=== PATIENT | female | born 2000 | race Caucasian/White ===

== ENCOUNTER 2024-10-23 08:49 | Emergency (ER) | payer OTHER, SELFPAY ==
--- NOTE | 2024-10-23 08:52 | ED.NAVMDI ---
HPI - Nausea/Vomiting/Diarrhea General Chief complaint: Upper Respiratory Infection Stated complaint: nausea,vomiting,headache Time Seen by Provider: 10/23/24 08:52 Source: patient Mode of arrival: ambulatory Limitations: no limitations History of Present Illness HPI Narrative: Marysol is a 24-year-old female patient presenting to the clinic today with complaints of nausea, vomiting, diarrhea, and headache. She reports headache started on Saturday however that resolved on Saturday. States she started having nausea, vomiting, and diarrhea on Saturday. No known fevers, chills, or body aches. Denies any URI symptoms or sore throat. Has taken multiple test and they were all negative. History of PCOS and she has a irregular menses. Denies any abdominal pain or blood in her stool or emesis. Does smoke marijuana but stop smoking on Saturday to see if this would alleviate her symptoms. States she is unable to keep food or water down at this time pain. Denies any nausea or headache currently. Denies any urinary symptoms. States she recently was treated for UTI in September. Related Data Home Medications ?Medication ?Instructions ?Recorded ?Confirmed ?Last Taken ?Type No Home Medications 10/23/24 10/23/24 Unknown History Allergies Allergy/AdvReac Type Severity Reaction Status Date / Time No Known Allergies Allergy Verified 10/23/24 09:05 Review of Systems Review of Systems: Pertinent positives per HPI. Patient denies any fever, chills, rash, headache, visual changes, dizziness, cough, runny nose, sore throat, shortness of breath, chest pain, palpitations, constipation, abdominal pain, or any urinary issues. PMFSH Comments At the time of my signature, I reviewed and agree with the nursing past medical, surgical, social, and family history. There is no relevant family history pertinent to the patient complaint. Exam Narrative: General: Well-developed, well nourished, in no apparent distress Head: Normocephalic, atraumatic Eyes: Pupils equally round and reactive to light bilaterally, EOM intact, sclera and conjunctive clear, no discharge, lids normal Ears: TMs intact and clear, ear canals clear, no drainage, grossly hearing normal. Nose: Nares patent, no discharge, no inflammation, no sinus tenderness. Mouth: Oropharynx without lesions or masses, good dentition, MMM. Neck: Supple, trachea midline, no enlargement of anterior or posterior cervical nodes, no thyroid masses or goiter palpable. Cardio: Regular rate and rhythm, s1 and s2 normal, no murmur appreciated. Resp: Clear to auscultation bilaterally anteriorly and posteriorly, no rhonchi, rales, wheezing or rubs Abdomen: Soft, pliable, bowel sounds present in all quadrants, non-tender to palpation, no organomegly, no CVAT tenderness. Course Course Emergency Course: Portions of this record may have been created with voice recognition software. Level of Care: Express Care Visit Vital Signs Vital signs: Vital Signs Temperature 36.2 C L 10/23/24 09:04 Pulse Rate 66 10/23/24 09:04 Respiratory Rate 18 10/23/24 09:04 Blood Pressure 104/60 10/23/24 09:04 Pulse Oximetry 100 10/23/24 09:04 Oxygen Delivery Room Air 10/23/24 09:04 Temperature 36.2 C L 10/23/24 09:04 Pulse Rate 66 10/23/24 09:04 Respiratory Rate 18 10/23/24 09:04 Blood Pressure 104/60 10/23/24 09:04 Pulse Oximetry 100 10/23/24 09:04 Oxygen Delivery Room Air 10/23/24 09:04 Vital signs reviewed Transfer Transfered to: [facility] Transportation: Other (Private car) Transfer rationale: Gastroenteritis/dehydration Accepting physician: Cristi Transfer comments: Private car MDM - Nausea/Vomiting/Diarrhea MDM Narrative Medical decision making narrative: At the time of visit patient is resting comfortably on the exam table. Patient appears to be nontoxic. Labs: Urinalysis positive for 2+ blood, 1+ protein, 4+ ketones, bili, and high specific gravity. Bedside test is negative. Plan: Shared decision making was performed: Offer to trial patient on antinausea medications and send her home and encourage increasing fluids or sending patient to the emergency room as she does appear to be dehydrated-mucous membranes are dry and she has 4+ ketones. Vital signs are stable at this time. Patient would like to go to the emergency room for IV fluids and further evaluation. Patient agrees to go to [facility] emergency room. Report was called to [place] physician's ambulance assistant for continuity of care and she accepts patient for transfer. Patient to be transferred via private car. Differential Diagnosis Differential diagnosis: Likely traveler's diarrhea, food poisoning, gastroenteritis, clostridium difficile infection, drug-induced nausea and vomiting, dehydration and other (, UTI, viral syndrome, migraine, cyclic vomiting due to THC use, small-bowel obstruction, GERD, JOSE FRANCISCO) Lab Data Labs: Lab Results 10/23/24 10/23/24 Range/Units 09:19 09:20 POC Urine Color Dark POC Urine Clarity Clear POC Urine pH 5.5 POC Ur Specif [place] 1.030 POC Urine Protein 1+ (Negative) POC Ur Glucose (UA) Negative (Negative) POC Urine Ketones 4+ (Negative) POC Urine Blood 2+ (Negative) POC Urine Nitrite Negative (Negative) POC Urine Bilirubin 1+ (Negative) POC Urine Urobilinogen 0.2 POC U Leukocyte Esteras Negative (Negative) POC Urine HCG, Qual Negative (Negative) Discharge Plan Discharge Clinical Impression: Gastroenteritis, Dehydration Patient Disposition: Acute Care Hospital Condition: Stable Patient Language: French Prescriptions: No Action No Home Medications Follow-up/Referrals: UNKNOWN,DOCTOR [Primary Care Provider] - Time of Disposition: 09:29 Quality NIHSS Nursing Documentation ED NIHSS nursing documentation: reviewed/agree
[2024-10-23 09:04] VITALS: BP 104/60; PULSE 66; RESP 18; TEMP 36.2; O2SAT 100
[2024-10-23 09:20] LABS: BEDSIDEPREGUCG Negative (Negative)
[2024-10-23 09:20] LABS: EDUAAPPEAR Clear; EDUABILI 1+ (Negative); EDUABLOOD 2+ (Negative); EDUACOLOR1 Dark; EDUAGLUCOSE Negative (Negative); EDUAKETONE 4+ (Negative); EDUALEUKO Negative (Negative); EDUANITRATE Negative (Negative); EDUAPH 5.5; EDUAPROTEIN 1+ (Negative); EDUAUROBILI 0.2
== END 2024-10-23 09:32 | disposition short-term general hospital (02) ==
PROVIDERS: Emergency Provider Nurse Practitioner Family
DX: K52.9 Noninfective gastroenteritis and colitis, unspecified (principal); E86.0 Dehydration; E28.2 Polycystic ovarian syndrome
CPT/HCPCS: 81003; 81025; 87086; 99213; G0463

== ENCOUNTER 2024-10-23 09:46 | Emergency (ER) | payer OTHER, SELFPAY ==
--- NOTE | ~2024-10-23 | CT_ITS ---
EXAMINATION: CT brain wo con DATE: 10/23/2024 10:34 INDICATION: Headache and vomiting TECHNIQUE: Computed tomography (CT) of the head was performed without intravenous contrast. Sagittal and coronal reconstructions were performed. The mA was adjusted according to patient size. Iterative reconstruction technique was employed. The dose-length product was 605.33 mGy-cm. COMPARISON: None FINDINGS: No acute intracranial hemorrhage, acute infarction or abnormal extra axial fluid collection. Ventricl es are normal and symmetric. No mass/mass effect. Bubbly mucus in the dependent right maxillary sinus consistent with acute sinusitis. The orbits and mastoid air cells are normal. IMPRESSION: 1. Normal brain. No acute intracranial process. 2. Bubbly mucus in the right maxillary sinus. Correlate clinically for acute sinusitis. Reviewed, dictated and finalized at location A. IMPRESSION: 1. Normal brain. No acute intracranial process. 2. Bubbly mucus in the right maxillary sinus. Correlate clinically for acute si nusitis.
[2024-10-23 10:01] VITALS: BP 116/71; PULSE 81; RESP 18; TEMP 36.8; O2SAT 100
--- NOTE | 2024-10-23 10:14 | PC.NURSE ---
Pt states unable to give urine sample at this time. States will use call light to alert staff when able
[2024-10-23 10:19] LABS: Basophils Percent Auto 0.2 % (0.2-1.2); Hematocrit 41.3 % (37.0-47.0); Hemoglobin 14.4 g/dL (12.0-15.0); Immature Granulocyte Absolute 0.05 K/mm3 (0.00-0.031); Immature Granulocyte Percent A 0.4 % (0-0.5); Lymphocytes Absolute Auto 0.69 K/mm3 (0.9-3.2); Lymphocytes Percent Auto 5.4 % (18.3-44.2); Mean Corpuscular HGB Conc 34.9 g/dl (32-36); Mean Corpuscular Hemoglobin 31.7 pg (26-34); Monocytes Absolute Auto 0.3 K/mm3 (0.1-0.6); Monocytes Percent Auto 2.5 % (2.6-8.5); Neutrophils Absolute Auto 11.6 K/mm3 (1.3-6.7); Neutrophils Percent Auto 91.5 % (45.5-73.1); Platelet Count Result 298 k/mm3 (150-375); Red Blood Count 4.54 M/mm3 (4.2-5.4); Red Cell Distribution Width 11.9 % (11.5-14.5); White Blood Count 12.7 K/mm3 (4.5-10.0)
--- NOTE | 2024-10-23 10:24 | ED_ITS ---
HPI - Nausea/Vomiting/Diarrhea General Chief complaint: Nausea/Vomiting/Diarrhea Stated complaint: not able to eat, nausea Time Seen by Provider: 10/23/24 09:56 Source: patient Mode of arrival: ambulatory Limitations: no limitations History of Present Illness HPI Narrative: This is a 24-year-old female that presents to the emergency department for nausea and vomiting. Ongoing over the last couple of days. Does report associated headache. Reports history of cluster headaches. Also does report history of GI issues that are brought on by stress. Reports she stopped smoking weed on Saturday. She was seen at urgent care and sent to the ER for further evaluation and IV fluid hydration. Denies fevers, abdominal pain, numbness, weakness. Related Data Allergies Allergy/AdvReac Type Severity Reaction Status Date / Time No Known Allergies Allergy Verified 10/23/24 09:05 Review of Systems 2 Review of Systems: All systems reviewed & are unremarkable except as noted in HPI and below PMFSH Social History Social History (Updated 10/23/24 @ 10:24 by [place] Mayorga PA-C) Smoking status: Current every day smoker Tobacco type: e-cigarettes/vaping Substance use: current Exam 2 Narrative: GENERAL: Well-appearing, well-nourished, and in no acute distress. HEAD: Normocephalic, atraumatic. EYES: PERRLA and EOMI. ENT: Nares clear, no rhinorrhea or epistaxis. Mucous membranes moist. Oropharynx without tonsillar hypertrophy exudate or other lesions. NECK: Supple. No adenopathy or masses. CHEST: Clear to auscultation. No respiratory distress. No wheezes rales or rhonchi HEART: Regular rate and rhythm. No murmur heard. Normal peripheral pulses. ABDOMEN: Soft, nontender, nondistended, normal active bowel sounds. EXTREMITIES: Normal range of motion. No edema. SKIN: Warm, dry, no rash. NEURO: No focal deficits. Alert and oriented x3. Cranial nerves 2-12 grossly intact PSYCH: Normal mood and affect Course Course Emergency Course: Patient updated on her workup. Reports feeling well and ready for discharge, tolerating p.o. challenge Vital Signs Vital signs: Vital Signs Temperature 98.3 F 10/23/24 10:01 Pulse Rate 81 10/23/24 10:01 Respiratory Rate 18 10/23/24 10:01 Blood Pressure 116/71 10/23/24 10:01 Pulse Oximetry 100 10/23/24 10:01 Oxygen Delivery Room Air 10/23/24 10:01 Temperature 98.3 F 10/23/24 10:01 Pulse Rate 65 10/23/24 12:51 Respiratory Rate 16 10/23/24 12:51 Blood Pressure 102/52 L 10/23/24 12:51 Pulse Oximetry 100 10/23/24 12:51 Oxygen Delivery Room Air 10/23/24 10:01 MDM - Nausea/Vomiting/Diarrhea MDM Narrative Medical decision making narrative: Patient presents the emergency department for nausea and vomiting. Ongoing over the last couple of days. Denies any associated abdominal discomfort. Is endorsing some headaches. History of cluster headaches. She also reports history of similar episodes of decreased appetite, nausea vomiting which last for several days. She does endorse smoking marijuana. She is afebrile and nontoxic appearing. Her vitals are stable. CBC with mild leukocytosis to 12.7, likely due to vomiting. Metabolic panel with some evidence of dehydration. Urine without evidence of infection. test negative. CT brain without acute findings. Patient hydrated with 2 L of IV fluids. Patient updated on her workup. Reports feeling well and ready for discharge, tolerating p.o. challenge. Instructed to have close follow-up with her PCP. Will be given information for follow-up with gastroenterology. She was given warnings to return to the ER Differential Diagnosis Differential diagnosis: Likely food poisoning, gastroenteritis, drug-induced nausea and vomiting and dehydration Lab Data Attestation: I reviewed the patient's lab results. 10/23/24 10:10 10/23/24 13:22 Labs: Lab Results 10/23/24 10/23/24 10/23/24 Range/Units 10:10 10:52 10:55 WBC 12.7 H (4.5-10.0) K/mm3 RBC 4.54 (4.2-5.4) M/mm3 Hgb 14.4 (12.0-15.0) g/dL Hct 41.3 (37.0-47.0) % MCV 91.0 (80-100) fl MCH 31.7 (26-34) pg MCHC 34.9 (32-36) g/dl RDW 11.9 (11.5-14.5) % Plt Count 298 (150-375) k/mm3 MPV 9.0 (7.4-10.4) fl Immature Gran % (Auto) 0.4 (0-0.5) % Neut % (Auto) 91.5 H (45.5-73.1) % Lymph % (Auto) 5.4 L (18.3-44.2) % [place] % (Auto) 2.5 L (2.6-8.5) % Eos % (Auto) 0.0 (0-4.4) % Baso % (Auto) 0.2 (0.2-1.2) % Lymph # (Auto) 0.69 L (0.9-3.2) K/mm3 [place] # (Auto) 0.3 (0.1-0.6) K/mm3 Eos # (Auto) 0.0 (0-0.3) K/mm3 Baso # (Auto) 0.0 (0.0-0.1) K/mm3 Abs Immat Gran (auto) 0.05 H (0.00-0.031) K/mm3 Absolute Neuts (auto) 11.6 H (1.3-6.7) K/mm3 Absolute Nucleated RBC 0.000 (0.0-0.012) K/mm3 Band Neutrophils % Not Reportable Nucleated RBC % 0.0 (0.0-0.2) % Platelet Estimate Adequate (Adequate) Schistocytes None seen Sodium 137 (137-145) mmol/L Potassium 4.0 (3.4-5.0) mmol/L Chloride 102 (98-107) mmol/L Carbon Dioxide 20 L (22-30) mmol/L Anion Gap 15 H (4-12) mmol/L BUN 15 (7-17) mg/dL Creatinine 0.74 (0.7-1.0) mg/dL Estim Creat Clear Calc 92 ml/min Estimated GFR > 60 (59 - ) Glucose 81 (65-110) mg/dL Calcium 9.2 (8.4-10.2) mg/dL Total Bilirubin 1.9 H (0.2-1.3) mg/dL AST 32 (14-36) U/L ALT 20 (6-35) U/L Alkaline Phosphatase 68 (38-126) U/L Total Protein 8.6 H (6.3-8.2) g/dL Albumin 4.9 (3.5-5.1) g/dL Lipase 60 (23-300) U/L Urine Color Yellow (Yellow) Urine Appearance Clear (Clear) Urine pH 5.0 (5.0-9.0) Ur Specific [place] 1.032 (1.001-1.035) Urine Protein 1+ H (Negative) mg/dL Urine Glucose (UA) Negative (Negative) mg/dL Urine Ketones 4+ H (Negative) mg/dL Ur Blood (Man) 1+ H (Negative) Urine Nitrate Negative (Negative) Urine Bilirubin Negative (Negative) Urine Urobilinogen 1.0 (<2.0) mg/dL Leukocyte Esterase Rfl Negative (Negative) PRAMOD/UL Urine RBC 3-5 H (0-2) /hpf Urine WBC 0-5 (0-3) /hpf Ur Squamous Epith Cells Occasional (Few) /hpf Urine Bacteria None seen /hpf Urine Casts 3-5 POC Urine HCG, Qual Negative (Negative) 10/23/24 Range/Units 13:22 WBC (4.5-10.0) K/mm3 RBC (4.2-5.4) M/mm3 Hgb (12.0-15.0) g/dL Hct (37.0-47.0) % MCV (80-100) fl MCH (26-34) pg MCHC (32-36) g/dl RDW (11.5-14.5) % Plt Count (150-375) k/mm3 MPV (7.4-10.4) fl Immature Gran % (Auto) (0-0.5) % Neut % (Auto) (45.5-73.1) % Lymph % (Auto) (18.3-44.2) % [place] % (Auto) (2.6-8.5) % Eos % (Auto) (0-4.4) % Baso % (Auto) (0.2-1.2) % Lymph # (Auto) (0.9-3.2) K/mm3 [place] # (Auto) (0.1-0.6) K/mm3 Eos # (Auto) (0-0.3) K/mm3 Baso # (Auto) (0.0-0.1) K/mm3 Abs Immat Gran (auto) (0.00-0.031) K/mm3 Absolute Neuts (auto) (1.3-6.7) K/mm3 Absolute Nucleated RBC (0.0-0.012) K/mm3 Band Neutrophils % Nucleated RBC % (0.0-0.2) % Platelet Estimate (Adequate) Schistocytes Sodium 139 (137-145) mmol/L Potassium 4.0 (3.4-5.0) mmol/L Chloride 105 (98-107) mmol/L Carbon Dioxide 19 L (22-30) mmol/L Anion Gap 15 H (4-12) mmol/L BUN 13 (7-17) mg/dL Creatinine 0.69 L (0.7-1.0) mg/dL Estim Creat Clear Calc 98 ml/min Estimated GFR > 60 (59 - ) Glucose 74 (65-110) mg/dL Calcium 8.8 (8.4-10.2) mg/dL Total Bilirubin (0.2-1.3) mg/dL AST (14-36) U/L ALT (6-35) U/L Alkaline Phosphatase (38-126) U/L Total Protein (6.3-8.2) g/dL Albumin (3.5-5.1) g/dL Lipase (23-300) U/L Urine Color (Yellow) Urine Appearance (Clear) Urine pH (5.0-9.0) Ur Specific [place] (1.001-1.035) Urine Protein (Negative) mg/dL Urine Glucose (UA) (Negative) mg/dL Urine Ketones (Negative) mg/dL Ur Blood (Man) (Negative) Urine Nitrate (Negative) Urine Bilirubin (Negative) Urine Urobilinogen (<2.0) mg/dL Leukocyte Esterase Rfl (Negative) PRAMOD/UL Urine RBC (0-2) /hpf Urine WBC (0-3) /hpf Ur Squamous Epith Cells (Few) /hpf Urine Bacteria /hpf Urine Casts POC Urine HCG, Qual (Negative) Critical Care Time Critical Care Time Critical Care Time: No Discharge Plan Discharge Clinical Impression: Dehydration Patient Disposition: Home Condition: Improved Instructions: Dehydration (ED) Additional Instructions: Return to the emergency department if you experience fever, chest pain, shortness of breath, abdominal pain with nausea and vomiting, weakness, numbness, or any other symptoms that are concerning to you. Remain well hydrated. Ondansetron as needed for nausea. Pepcid as needed Follow up with your primary care doctor and gastroenterology Patient Language: Mauritanian Prescriptions: New ondansetron 4 mg tablet,disintegrating 4 mg PO Q8H PRN (Reason: nausea and vomiting) Qty: 14 0RF famotidine [Pepcid AC] 20 mg tablet 20 mg PO DAILY 7 Days Qty: 7 0RF Follow-up/Referrals: PHYSICIAN NOT ON STAFF,NONSTAFF [Primary Care Provider] - Dany Palacios MD [Physician] -
[2024-10-23 10:28] LABS: Alanine Aminotransferase 20 U/L (6-35); Albumin Level 4.9 g/dL (3.5-5.1); Alkaline Phosphatase 68 U/L (38-126); Anion Gap 15 mmol/L (4-12); Aspartate Amino Transferase 32 U/L (14-36); Bilirubin,Total 1.9 mg/dL (0.2-1.3); Blood Urea Nitrogen 15 mg/dL (7-17); Calcium 9.2 mg/dL (8.4-10.2); Carbon Dioxide 20 mmol/L (22-30); Chloride 102 mmol/L (98-107); Estimated CRCL calculation 92 ml/min; Estimated Glomerular Filt Rate > 60; Glucose 81 mg/dL (65-110); Lipase 60 U/L (23-300); Sodium 137 mmol/L (137-145); Total Protein 8.6 g/dL (6.3-8.2)
--- NOTE | 2024-10-23 10:44 | PC.NURSE ---
patient ambulated to bathroom with a urine cup to provide sample.
[2024-10-23] MEDS: SODIUM CHLORIDE 0.9% IV 1,000 ML 999 ML IV CONT (10:47)
[2024-10-23] MEDS: diphenhydrAMINE HCl INJ 50 MG/ML VIAL 25 MG IV PUSH (10:48)
[2024-10-23] MEDS: FAMOTIDINE 20 MG/2 ML VIAL IV PUSH (10:49)
[2024-10-23 10:50] LABS: Platelet Estimate Adequate (Adequate); Schistocytes None Seen
[2024-10-23] MEDS: METOCLOPRAMIDE HCL INJ 10 MG/2 ML VIAL IV PUSH (10:50)
[2024-10-23 10:55] VITALS: BP 102/62; PULSE 79; RESP 14; O2SAT 100
[2024-10-23 10:58] LABS: BEDSIDEPREGUCG Negative (Negative)
[2024-10-23 11:18] LABS: Add Urine Microscopic? YES; Appearance Urine Clear (Clear); Bacteria Urine None Seen /hpf; Bilirubin Urine Negative (Negative); Blood Urine 1+ (Negative); Color Urine Yellow (Yellow); Glucose Urine UA Negative (Negative); Ketones Urine 4+ mg/dL (Negative); Leukocyte Esterase Ur Negative LEU/UL (Negative); Nitrate Urine Negative (Negative); Protein Urine 1+ mg/dL (Negative); Specific Grav Ur 1.032 (1.001-1.035); Squamous Epithelial Cell Urine Occasional /hpf (Few); WBC Urine 0-5 /hpf (0-3)
[2024-10-23] MEDS: LACTATED RINGERS 1,000 ML 999 ML IV CONT (11:43)
[2024-10-23 12:51] VITALS: BP 102/52; PULSE 65; RESP 16; O2SAT 100
[2024-10-23 13:50] LABS: Anion Gap 15 mmol/L (4-12); Blood Urea Nitrogen 13 mg/dL (7-17); Calcium 8.8 mg/dL (8.4-10.2); Carbon Dioxide 19 mmol/L (22-30); Chloride 105 mmol/L (98-107); Estimated CRCL calculation 98 ml/min; Estimated Glomerular Filt Rate > 60; Glucose 74 mg/dL (65-110); Sodium 139 mmol/L (137-145)
[2024-10-23 14:16] VITALS: BP 105/60; PULSE 87; RESP 18; O2SAT 98
== END 2024-10-23 14:17 | disposition home or self-care (01) ==
PROVIDERS: Emergency Provider Physician Assistant
DX: E86.0 Dehydration (principal); F17.290 Nicotine dependence, other tobacco product, uncomplicated
CPT/HCPCS: 36415; 70450; 80048; 80053; 81001; 81003; 81025; 83690; 85025; 87086; 96361; 96374; 96375; 99284; J1200; J2765; J7030; J7120

== ENCOUNTER 2025-04-24 16:44 | Emergency (ER) | payer OTHER, SELFPAY ==
--- NOTE | 2025-04-24 16:48 | ED_ITS ---
HPI - URI/Sore Throat General Chief Complaint: Upper Respiratory Infection Stated Complaint: strep Time Seen by Provider: 04/24/25 17:05 Source: patient, RN notes reviewed and old records reviewed Mode of arrival: ambulatory Limitations: no limitations History of Present Illness HPI Narrative: 24-year-old female presents to the [facility] with a sore itchy throat. Patient states that she was not feeling well several days ago, is better today. Has an exposure to strep no treatment prior to arrival Treatments prior to arrival: none Related Data Home Medications ?Medication ?Instructions ?Recorded ?Confirmed ?Last Taken ?Type No Home Medications 04/24/25 04/24/25 U nknown History Allergies Allergy/AdvReac Type Severity Reaction Status Date / Time No Known Allergies Allergy Verified 04/24/25 17:14 Review of Systems Review of Systems: All systems reviewed & are unremarkable except as noted in HPI and below Constitutional: Constitutional: Reports no additional constitutional complaints ENT: Reports as per HPI and Reports sore throat Cardiovascular: Cardiovascular: Reports no additional cardiovascular complaints, Denies chest pain and Denies dyspnea Respiratory: Respiratory: Reports no additional respiratory complaints, Denies chest congestion, Denies cough and Denies dyspnea Musculoskeletal: Musculoskeletal: Reports no additional musculoskeletal c omplaints Integumentary/Breasts: Skin/Breast: Reports system reviewed and no additional complaints, except as docu PMFSH Social History Social History Smoking status: Current every day smoker Tobacco type: e-cigarettes/vaping Substance use: current Comments At the time of my signature, I reviewed and agree with the nursing past medical, surgical, social, and family history. There is no relevant family history pertinent to the patient complaint. Exam Const: General: cooperative, healthy appearing, comfortable, no acute distress, well developed, alert and well nourished Nutritional Appearance: well nourished Orientation/consciousness: patient oriented x3 Limitations: no limitations HENMT: Head: normal to inspection Ears: hearing grossly normal bilaterally, external ears normal, TM's normal bilaterally, EAC's normal, mastoids normal and no periauricular adenopathy Face/Nose/Sinus: Normal external nose present, Normal nares present, Normal nasal mucous membranes and turbinates present and No nasal discharge present Mouth: Yes Normal oral and palatal mucosa present, Yes lip normal, Yes tongue normal and Yes moist mucous membranes Throat: posterior oropharynx normal, uvula midline and no uvular edema Eyes: General: appearance normal, both eyes and all related structures Alignment and Position: alignment normal Neck: Neck: normal visual inspection, full ROM, no lymphadenopathy and no meningeal signs Chest: Chest palpation & inspection: normal inspection of the chest Resp: Effort & Inspection: normal respiratory effort and able to speak in complete sentences Auscultation: clear to auscultation bilaterally, no crackles, no rales, no rhonchi and no wheezes Cardio: Rate: regular rate Skin: General skin exam: normal color and no rashes or lesions noted Neuro: General: patient oriented x3, gait normal, moves all extremities and no meningeal signs Cognition (Neuro): normal cognition Speech: normal speech Gait exam (Neuro): Normal gait present Extrem: General: normal to inspection, full ROM, capillary refill normal and normal gait Psych: Appearance: grossly normal and well kempt Mental Status: mental status grossly normal Speech and movement: Normal speech and movement present and Clear speech present Affect: normal affect Attitude: cooperative Course Course Level of Care: Express Care Visit Vital Signs Vital signs: Vital Signs Temperature 97.5 F L 04/24/25 17:02 Pulse Rate 70 04/24/25 17:02 Respiratory Rate 16 04/24/25 17:02 Blood Pressure 106/54 L 04/24/25 17:02 Pulse Oximetry 100 04/24/25 17:02 Oxygen Delivery Room Air 04/24/25 17:02 Temperature 97.5 F L 04/24/25 17:02 Pulse Rate 70 04/24/25 17:02 Respiratory Rate 16 04/24/25 17:02 Blood Pressure 106/54 L 04/24/25 17:02 Pulse Oximetry 100 04/24/25 17:02 Oxygen Delivery Room Air 04/24/25 17:02 reviewed MDM MDM Narrative Medical decision making narrative: patient sitting in exam room. Patient is nontoxic, vitals are stable. Patient presents with exposure to strep. Strep test here negative, will culture. Patient with no acute findings on exam. Patient is appropriate for outpatient treatment with close follow-up Discharge instructions reviewed with patient, as well as provided in writing per nursing staff. The instructions also include specific and strict return/GO TO THE ER as well as f/u information. All questions have been answered, and the patient deny any further questions with discharge and discharge plan. Some parts of this dictation were generated by voice recognition software and may contain typographical and/or grammatical inaccuracies. Differential Diagnosis Differential Diagnosis: Differential diagnostic considerations for upper respiratory infection include upper respiratory infection, croup, otitis media, sinusitis, viral infection, bronchitis, influenza, pharyngitis, strep, uvulitis.? Medical Records I have reviewed the following patient records and this information was taken into consideration when formulating the assessment and plan.: previous ER visits Lab Data Labs: Lab Results 04/24/25 Range/Units 17:12 POC Grp A Strep Screen Negative (Negative) reviewed Discharge Plan Discharge Clinical Impression: Pharyngitis Patient Disposition: Home Condition: Stable Instructions: Antibiotic Form, Pharyngitis (ED) Additional Instructions: Your rapid strep swab was negative today at [facility]. A throat culture will be sent to the laboratory for further testing. If the test is positive, you will receive a phone call within 48 hours and an appropriate antibiotic will be initiated at that time. Your symptoms are likely due to a viral illness, which is not treated with antibiotics. Typically viral infections last 7-10 days, can linger for couple of weeks. It is very important to treat your symptoms. Drink plenty of water, Gatorade, Pedialyte, ice pops or Jell-O. -Alternate Tylenol and Motrin per package directions for fever or pain. You can alternate every 4 hours -Antihistamine medication such as Zyrtec/Claritin/Beth during the day can help improve symptoms. -doing daily nasal irrigations can help relieve pressure your sinuses. Things like a Neti pot -Use Flonase twice a day for 5 days then daily to help reduce the inflammation and dry up your sinuses. -You can also use Mucinex. Be sure to drink plenty of water with this medication at least 8 ounces with every dose and it is important to drink 8 to 10 glasses of water per day. Water is a natural decongestant -Eat and drink things that are easy to swallow, like tea or soup, or popsicles. -Oral rinses such as: Salt water gargles and/or may use topical anesthetic (eg. Chloraseptic spray) or lozenges to relieve dryness or throat pain). -Frequent hand washing or hand hydraulic riveter is one of the best ways to prevent spread of infection. -Using a vaporizer or humidifier at night will also help thin secretions and help with coughing up phlegm. -Follow up with primary care provider in 7-10 days if condition is not improving - For new or worsening symptoms go directly to the nearest ER Patient Language: Nauruan Prescriptions: No Action No Home Medications Follow-up/Referrals: PHYSICIAN NOT ON STAFF,NONSTAFF [Primary Care Provider] Time of Disposition: 17:20
--- OUTSIDE RECORDS SUMMARY | 2025-04-24 16:48 | XMS_ITS | Encounter Summary ---
Author Organization [facility] Address [address] [place] [address] Care Team Providers Care Sql Server Architect Name Role Phone Jose A Hernandez MD Primary Care Provider [phone] Encounter Details Date Type Department Care Team (Late st Contact Info) Description 05/04/2007 Emergency [facility] [place], Authorized P NO ADDRESS ON FILE Elver Paiz, ADAMARIS [address] [address] Social History Tobacco Use Types Packs/Day Years Used Date Smoking Tobacco: Never Assessed Comments Unknown Sex and Gender Information Value Date Recorded Sex Assigned at Female 10/31/2023 8:48 AM CDT Legal Sex Female 5:21 AM MERCHANDISE COLLECTOR Gender Identity Female 10/31/2023 8:48 AM CDT Sexual Orientation Not on file documented as of this encounter Plan of Treatment Upcoming Encounters Date Type Department Care Team (Late st Contact Info) Description 03/11/2026 9:00 AM MERCHANDISE COLLECTOR Office Visit [facility] [address] [place] [address] Wendy Cee DNP [address] [place] [address] documented as of this encounter Visit Diagnoses Not on filedocumented in this encounter Care Teams Sql Server Architect Relationship Specialty Start Date End Date Jose A Hernandez MD PCP - General Internal Medicine 03/22/22 documented as of this encounter
--- OUTSIDE RECORDS SUMMARY | 2025-04-24 16:48 | XMS_ITS | Encounter Summary ---
Author Organization [facility] Address [address] [place]: [place] [address] Care Team Providers Care Oxygen Therapist Name Role Phone Jose A Hernandez MD Primary Care Provider [phone]- [phone] Encounter Details Date Type Department Care Team (Late st Contact Info) Description 1999 Inpatient Historical Holly Joe MD [address] [place] [address] Single liveborn, born in hospital, delivered without mention of delivery (Primary Dx) Social History Tobacco Use Types Packs/Day Years Used Date Smoking Tobacco: Never Assessed Comments Unknown Sex and Gender Information Value Date Recorded Sex Assigned at Female 10/31/2023 8:48 AM CDT Legal Sex Female 5:21 AM AMBULATORY NURSE Gender Identity Female 10/31/2023 8:48 AM CDT Sexual Orientation Not on file documented as of this encounter Plan of Treatment Upcoming Encounters Date Type Department Care Team (Late st Contact Info) Description 03/11/2026 9:00 AM AMBULATORY NURSE Office Visit [facility] [address] [facility] [address] [place] [address] Wendy Cee, MARIANNA [address] [facility] [address] [place] [id number] documented as of this encounter Visit Diagnoses Diagnosis Single liveborn, born in hospital, delivered without mention of delivery- Primary documented in this encounter Care Teams Oxygen Therapist Relationship Specialty Start Date End Date Jose A Hernandez MD PCP - General Internal Medicine 03/22/22 documented as of this encounter
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
--- OUTSIDE RECORDS SUMMARY | 2025-04-24 16:48 | XMS_ITS | Encounter Summary ---
Author Organization [facility] Address [address] [place] [address] Care Team Providers Care Packing Room Worker Name Role Phone Jose A Hernandez MD Primary Care Provider [phone]- [phone] Encounter Details Date Type Department Care Team (Latest Contact Info) Description 05/03/2000 Outpatient Historical [facility] Waldo Jett MD [address] [facility] [address] [address] Stenosis of nasolacrimal duct, acquired (Primary Dx) Social History Tobacco Use Types Packs/Day Years Used Date Smoking Tobacco: Never Assessed Comments Unknown Sex and Gender Information Value Date Recorded Sex Assigned at Female 10/31/2023 8:48 AM CDT Legal Sex Female 5:21 AM ETCHER ELECTROLYTIC Gender Identity Female 10/31/2023 8:48 AM CDT Sexual Orientation Not on file documented as of this encounter Plan of Treatment Upcoming Encounters Date Type Department Care Team (Late st Contact Info) Description 03/11/2026 9:00 AM ETCHER ELECTROLYTIC Office Visit [facility] [address] [place] [address] [place] [address] [place] [id number] Wendy Cee, DNP [address] [facility] [place] [address] [place] [address] documented as of this encounter Visit Diagnoses Diagnosis Stenosis of nasolacrimal duct, acquired- Primary documented in this encounter Care Teams Packing Room Worker Relationship Specialty Start Date End Date Jose A Hernandez MD PCP - General Internal Medicine 03/22/22 documented as of this encounter
--- OUTSIDE RECORDS SUMMARY | 2025-04-24 16:50 | XMS_ITS | Encounter Summary ---
Author Organization [facility] Address [address] [place] [address] Care Team Providers Care Nuclear Medicine Technologist Name Role Phone Jose A Hernandez MD Primary Care Provider [phone]- [phone] Encounter Details Date Type Department Care Team (Late st Contact Info) Description 03/11/2025 Results Follow-Up [facility] [place] [facility] [address] [facility] [address] [place] [address] Wendy Cee, DNP [address] [facility] [address] [place] [address] CERV/VAG CYTO AGE BASED SCREEN PAP Social History Tobacco Use Types Packs/Day Years Used Date Smoking Tobacco: Former Cigarettes 0.3 1 0 06/2020 - 06/2021 Smokeless Tobacco: Never Alcohol Use Standard Drinks/Week Comments Not Currently 0 (1 standard drink = 0.6 oz pur e alcohol) Feeling Safe Answer Date Recorded Are you in a relationship wi th someone who hurts you emotionally and/or physically? No 03/19/2023 Comments No Sex and Gender Information Value Date Recorded Sex Assigned at Female 10/31/2023 8:48 AM CDT Legal Sex Female 5:21 AM COLLEGE OR UNIVERSITY BUSINESS MANAGER Gender Identity Female 10/31/2023 8:48 AM CDT Sexual Orientation Not on file documented as of this encounter Plan of Treatment Upcoming Encounters Date Type Department Care Team (Late st Contact Info) Description 03/11/2026 9:00 AM COLLEGE OR UNIVERSITY BUSINESS MANAGER Office Visit [facility] [address] [place] [address] [facility] [address] [facility] [address] [place] [address] Wendy Cee, [facility] [address] [facility] [address] [facility] [address] [place] [address] documented as of this encounter Visit Diagnoses Not on filedocumented in this encounter Care Teams Nuclear Medicine Technologist Relationship Specialty Start Date End Date Jose A Hernandez MD PCP - General Internal Medicine 03/22/22 documented as of this encounter
[2025-04-24 17:02] VITALS: BP 106/54; PULSE 70; RESP 16; TEMP 36.4; O2SAT 100
[2025-04-24 17:38] LABS: EDSTREPNEGPOS1 Negative (Negative)
== END 2025-04-24 17:24 | disposition home or self-care (01) ==
PROVIDERS: Emergency Provider Nurse Practitioner
DX: J02.0 Streptococcal pharyngitis (principal); F17.290 Nicotine dependence, other tobacco product, uncomplicated
CPT/HCPCS: 87081; 87880; 99213; G0463